=== PATIENT | male | born 1935 | race African-American/Black ===

== ENCOUNTER 2021-09-27 17:04 | Emergency (ER) | payer OTHER ==
[~2021-09-27] VITALS: Ht 177.8 cm; Wt 115.7 kg
[2021-09-27 18:42] VITALS: BP 150/75
== END 2021-09-27 21:11 | disposition home or self-care (01) ==
LOC: EDBD 17:04 → EDUNIT# 17:04 → ER 17:04
DX: S09.8XXA Other specified injuries of head, initial encounter (principal); E78.5 Hyperlipidemia, unspecified; I10 Essential (primary) hypertension; W18.39XA Other fall on same level, initial encounter; Y93.89 Activity, other specified; Y92.89 Other specified places as the place of occurrence of the external cause; Y99.8 Other external cause status
CPT/HCPCS: 70450; 72125; 93005